=== PATIENT | female | born 1995 | race Caucasian/White ===

== ENCOUNTER 2016-09-12 14:15 | Emergency (ER) | payer BC ==
[2016-09-12 14:25] VITALS: O2SAT 99
--- NOTE | 2016-09-12 14:28 | EDPHY ---
H & P Stated Complaint: anxiety and depression Time Seen by Provider: 09/12/16 14:27 HPI/ROS: CHIEF COMPLAINT: Worsening anxiety and depression HISTORY OF PRESENT ILLNESS: The patient presents to the ED with worsening depression and anxiety over the past day. The patient states the symptoms have been precipitated by of her father 3 weeks ago. The patient does have a history of prior depression and anxiety. She currently takes Lamictal which is prescribed by a neurologist she has seen for a sleep disorder in [place]. The patient reportedly had been on Pristiq before in the past. The patient does currently take Vyvanse also prescribed all. The patient denies any drug, alcohol or recreational drug use. REVIEW OF SYSTEMS: A comprehensive 10 point review of systems is otherwise negative aside from elements mentioned in the history of present illness. Source: Patient Exam Limitations: No limitations - Personal History LMP (Females 10-55): 8-14 Days Ago Current Tetanus/Diphtheria Vaccine: Yes - Medical/Surgical History Hx Asthma: No Hx Chronic Respiratory Disease: No Hx Diabetes: No Hx Cardiac Disease: No Hx Renal Disease: No Hx Cirrhosis: No Hx Alcoholism: No Hx HIV/AIDS: No Hx Splenectomy or Spleen Trauma: No Other PMH: anxiety, depression , bipolar - Social History Smoking Status: Former smoker - Physical Exam Exam: General Appearance: Tearful, anxious Eyes: Pupils equal and round no pallor or injection ENT, Mouth: Mucous membranes moist Respiratory: There are no retractions, lungs are clear to auscultation Cardiovascular: Regular rate and rhythm Gastrointestinal: Abdomen is soft and nontender, no masses, bowel sounds normal Neurological: A&O, normal motor function, normal sensory exam, normal cranial nerves Skin: Warm and dry, no rashes Musculoskeletal: Neck is supple nontender Extremities: symmetrical, full range of motion Psychiatric: Tearful, anxious, endorses depression and anxiety, denies suicidal ideation Constitutional: Initial Vital Signs Temperature (C) 36.8 C 09/12/16 14:23 Heart Rate 110 H 09/12/16 14:23 Respiratory Rate 22 H 09/12/16 14:23 Blood Pressure 127/98 H 09/12/16 14:23 O2 Sat (%) 99 09/12/16 14:23 O2 Delivery Mode Room Air Allergies/Adverse Reactions: No Known Allergies Allergy (Unverified 09/12/16 14:26) Home Medications: Medication Instructions Recorded LaMICtal 200 mg PO 09/12/16 Medical Decision Making ED Course/Re-evaluation: The patient presents to the ED with fairly decompensated anxiety from the recent loss of her father. The patient did use some Xanax today with minimal improvement of her symptoms. The patient denies overt suicidal or homicidal ideation. She is able to contract for safety. I did have the patient evaluated by the psychiatric casino slot supervisor in the emergency department. He spent approximately 2-3 hours working with the patient coming up with the plan. Her big stress surrounds graduation and deficiencies with her current academic requirements. Our psychiatric casino slot supervisor has made arrangements to contact the clinic office manager at the [facility] to facilitate special arrangements for the patient in her moment of grief and anxiety. The patient will be provided a short course of Ativan. She is advised to stop taking Xanax. The patient will follow up with her regular therapist and psychiatrist at the [facility]. The patient does contract for safety and will return to the ED immediately for any worsening symptoms or other concerns. The patient was evaluated multiple times by myself in the ED over a 4 hour period. She does not meet criteria for an M1 psychiatric hold. Differential Diagnosis: Differential diagnosis considered includes depression, anxiety, psychosis, suicidal ideation - Data Points Laboratory Results: Laboratory Results 09/12/16 14:55 09/12/16 14:55 09/12/16 09/12/16 09/12/16 14:55 14:55 14:55 WBC 6.43 10^3/uL 10^3/uL (3.80-9.50) RBC 4.42 10^6/uL 10^6/uL (4.18-5.33) Hgb 14.1 g/dL g/dL (12.6-16.3) Hct 40.0 % % (38.0-47.0) MCV 90.5 fL fL (81.5-99.8) MCH 31.9 pg pg (27.9-34.1) MCHC 35.3 g/dL g/dL (32.4-36.7) RDW 12.2 % % (11.5-15.2) Plt Count 352 10^3/uL 10^3/uL (150-400) MPV 8.7 fL fL (8.7-11.7) Neut % (Auto) 53.0 % % (39.3-74.2) Lymph % (Auto) 37.6 % % (15.0-45.0) [place] % (Auto) 6.8 % % (4.5-13.0) Eos % (Auto) 1.4 % % (0.6-7.6) Baso % (Auto) 0.9 % % (0.3-1.7) Nucleat RBC Rel Count 0.0 % % (0.0-0.2) Absolute Neuts (auto) 3.40 10^3/uL 10^3/uL (1.70-6.50) Absolute Lymphs (auto) 2.42 10^3/uL 10^3/uL (1.00-3.00) Absolute Monos (auto) 0.44 10^3/uL 10^3/uL (0.30-0.80) Absolute Eos (auto) 0.09 10^3/uL 10^3/uL (0.03-0.40) Absolute Basos (auto) 0.06 10^3/uL 10^3/uL (0.02-0.10) Absolute Nucleated RBC 0.00 10^3/uL 10^3/uL (0-0.01) Immature Gran % 0.3 % % (0.0-1.1) Immature Gran # 0.02 10^3/uL 10^3/uL (0.00-0.10) Sodium 140 mEq/L mEq/L (134-144) Potassium 3.9 mEq/L mEq/L (3.5-5.2) Chloride 103 mEq/L mEq/L (97-110) Carbon Dioxide 24 mEq/l mEq/l (22-31) Anion Gap 13 mEq/L mEq/L (8-16) BUN 11 mg/dL mg/dL (7-23) Creatinine 0.8 mg/dL mg/dL (0.6-1.0) Estimated GFR > 60 Glucose 92 mg/dL mg/dL (70-100) Calcium 10.4 mg/dL mg/dL (8.5-10.4) Beta HCG, Qual NEGATIVE Medications Given: Discontinued Medications Sodium Chloride (Ns) 1,000 mls @ 0 mls/hr IV ONCE ONE PRN Reason: Wide Open Stop: 09/12/16 14:50 Last Admin: 09/12/16 15:19 Dose: 1,000 mls Lorazepam (Ativan Injection) 1 mg IVP EDNOW ONE Stop: 09/12/16 15:07 Last Admin: 09/12/16 15:06 Dose: 1 mg Departure - Departure Disposition: Home, Routine, Self-Care Clinical Impression: Depression, Anxiety Condition: Good Instructions: Anxiety (ED) Additional Instructions: 1. Ativan as needed for anxiety. Please stop taking Xanax that was previously prescribed. Please continue your regular medications. Please follow up with the resources provided by the mental health casino slot supervisor in the ED today. 2. Please return to the ED immediately for any symptoms of worsening depression , anxiety thoughts of harming herself or or worsening symptoms.
[2016-09-12] MEDS ORDERED: LORazepam 2 MG/ML INJ ONE (14:48)
[2016-09-12] MEDS ORDERED: NS 1,000 ML IV ONE (14:49)
[2016-09-12] MEDS ORDERED: LORazepam 2 MG/ML INJ IVP ONE (15:06)
[2016-09-12 15:11] LABS: % IMMATURE GRANULYOCYTES 0.3 % (0.0-1.1); ABSOLUTE IMMATURE GRANULOCYTES 0.02 10^3/uL (0.00-0.10); ADD DIFF? NO; ADD MORPH? NO; ADD SCAN? NO; ATYPICAL LYMPHOCYTE FLAG 10 (0-99); FRAGMENT RBC FLAG 0 (0-99); HEMOGLOBIN 14.1 g/dL (12.6-16.3); LEFT SHIFT FLG 0 (0-99); LIPEMIA HEMOLYSIS FLAG 90 (0-99); MEAN CELL HEMOGLOBIN 31.9 pg (27.9-34.1); MEAN CELL HEMOGLOBIN CONCENTR. 35.3 g/dL (32.4-36.7); MEAN CELL VOLUME 90.5 fL (81.5-99.8); MEAN PLATELET VOLUME 8.7 fL (8.7-11.7); PLATELET CLUMPS FLAG 10 (0-99); PLATELET COUNT 352 10^3/uL (150-400); RED BLOOD CELL COUNT 4.42 10^6/uL (4.18-5.33); RED CELL DISTRIBUTION WIDTH 12.2 % (11.5-15.2)
[2016-09-12 15:33] LABS: ANION GAP 13 mEq/L (8-16); CALCIUM 10.4 mg/dL (8.5-10.4); CARBON DIOXIDE 24 mEq/l (22-31); CHLORIDE 103 mEq/L (97-110); CREATININE 0.8 mg/dL (0.6-1.0); GLOMERULAR FILTRATION RATE > 60; GLUCOSE 92 mg/dL (70-100); POTASSIUM 3.9 mEq/L (3.5-5.2); SODIUM 140 mEq/L (134-144)
[2016-09-12 18:53] VITALS: BP 112/87; PULSE 104; RESP 18; TEMP 98.1
[2016-09-12] MEDS ORDERED: LORAZEPAM 1 MG PREPACK#4 BTL TAKEHOME ONE ×2 (18:55→19:00)
== END 2016-09-12 19:01 | disposition home or self-care (01) ==
DX: F41.8 Other specified anxiety disorders (principal); Z87.891 Personal history of nicotine dependence
CPT/HCPCS: 96374; J2060